=== PATIENT | female | born 1950 | race Caucasian/White ===

== ENCOUNTER → 2016-12-01 | Outpatient (CLI) | payer OTHER, BC | LOC: FIMAGING 08:48 | PROVIDERS: ATTEND Family Medicine | DX: N60.02 Solitary cyst of left breast (principal) | CPT/HCPCS: 76641; G0206 ==

== ENCOUNTER 2017-02-21 19:03 | Emergency (ER) | payer OTHER, BC ==
[2017-02-21 19:18] VITALS: RESP 16; TEMP 98.1
--- NOTE | 2017-02-21 19:31 | CPEKG ---
Heart Rate: 75 RR Interval: 800 P-R Interval: 156 QRSD Interval: 78 QT Interval: 404 QTC Interval: 452 P Hamilton: 42 QRS Hamilton: 3 T Wave Hamilton: 4 EKG Severity - ABNORMAL ECG - EKG Impression: SINUS RHYTHM EKG Impression: BORDERLINE R WAVE PROGRESSION, ANTERIOR LEADS EKG Impression: NONSPECIFIC T ABNORMALITIES, ANTERIOR LEADS Electronically Signed By: Ian Floyd 21-Feb-2017 23:47:19
--- NOTE | 2017-02-21 19:38 | EDPHY ---
H & P Time Seen by Provider: 02/21/17 19:37 HPI/ROS: Chief complaint. Chest pain HPI. 66-year-old female presents emergency department with right-sided chest pain that began today. She was also lightheaded this morning which she describes as spinning and took meclizine with relief. She has had previous vertigo and this was typical. The pain is in her right breast and she describes as a fullness. No radiation. Not worse with exertion or breathing. She had a viral infection 1 week ago with some cough. No unusual leg pain or swelling however she has been on a driving trip for the past 6 weeks most recently driving from [place]. ROS Constitutional. no fever/chills, no weakness Eyes. no problems with vision ENT. no sore throat, no nasal drainage Cardiovascular. Right-sided chest pain Respiratory. no shortness of breath, no cough Abdominal. no abdominal pain, no nausea/vomiting, no diarrhea . no problems urinating MS. no calf pain/swelling, no neck/back pain, no joint pain Skin. no rash Lymph. no swollen glands Neuro. Vertigo Past Medical/Surgical History: Past medical history of coronary artery bypass graft. Coronary artery disease with stents. Dyslipidemia, breast cancer, asthma, hypertension, GERD Social History: , nonsmoker, no alcohol Smoking Status: Never smoked Physical Exam: General Appearance: Alert well-developed female mild distress vital Eyes: Pupils equal and round no pallor or injection. ENT, Mouth: Mucous membranes are moist. Respiratory: There are no retractions, lungs are clear to auscultation. Cardiovascular: Regular rate and rhythm. Gastrointestinal: Abdomen is soft and nontender, no masses, bowel sounds normal. Neurological: Awake and alert, sensory and motor exams grossly normal. Skin: Warm and dry, no rashes. Musculoskeletal: Neck is supple nontender. Maybe slight tenderness to the right breast with palpation but no mass noted Extremities symmetrical, full range of motion. Psychiatric: Patient is oriented X 3, there is no agitation. Constitutional: Initial Vital Signs Temperature (C) 36.7 C 02/21/17 19:13 Heart Rate 92 02/21/17 19:13 Respiratory Rate 16 02/21/17 19:13 Blood Pressure 169/93 H 02/21/17 19:13 O2 Sat (%) 96 02/21/17 19:13 O2 Delivery Mode Room Air Allergies/Adverse Reactions: lisinopril [Lisinopril] Allergy (Severe, Verified 02/21/17 19:19) Congestion torsemide Allergy (Verified 02/21/17 19:19) zolpidem tartrate [From Ambien] Allergy (Verified 02/21/17 19:19) Other-Enter Comments Home Medications: Medication Instructions Recorded Calcium Carb W/Vit D [Calcium Carb 500 mg PO HS 05/19/16 W/Vit D 500/200 (*)] Herbals/Supplements -Info Only 1 ea PO DAILY 05/19/16 Multivitamins [Multivitamin (*)] 1 tab PO HS 05/19/16 [place]-3 Fatty Acids [Fish Oil 1000 1,000 mg PO HS 05/19/16 mg (*)] Pantoprazole Sodium [Protonix 40mg 40 mg PO HS 05/19/16 (*)] Rosuvastatin Calcium [Crestor 20mg 10 mg PO HS 05/19/16 (*)] Acetaminophen [Tylenol ES 500 mg 500 mg PO Q6 PRN 05/26/16 (*)] Ascorbic Acid [Vitamin C 500 mg 500 mg PO HS 05/26/16 (*)] Aspirin [Aspirin 325 mg (*)] 325 mg PO HS 05/26/16 Metoprolol Succinate Xr [Toprol Xl 25 mg PO HS 05/26/16 25 mg (*)] Prasugrel HCl [Effient 10mg (*)] 10 mg PO HS 05/26/16 Ranolazine [Ranexa] 500 mg PO BID 02/21/17 Vitamin E 100 unit PO HS 02/21/17 Medical Decision Making - Diagnostics EKG Interpretation: EKG interpreted by me shows normal sinus rhythm with normal interval. There is left axis deviation. QRS is normal. Inverted T-waves anteriorly. The rate is 75. This is not changed from previous EKG April 2016 Imaging Results: Imaging Impressions Chest X-Ray 02/21/17 19:39 Impression: 1. Hyperexpansion may reflect COPD or airways disease. 2. Stigmata of previous open heart surgery. Chest/Thorax CTA 02/21/17 20:33 Impression: 1. No evidence of pulmonary embolic disease. 2. Postoperative changes of right breast lumpectomy are noted. There is soft tissue prominence posteriorly in the right breast adjacent to the chest wall, which is probably postoperative change versus involvement of the chest wall with breast cancer. MRI could be considered for making this differential, as clinically indicated. 3. See above report for additional findings. Results called and discussed with Ian Floyd M.D., on February 21, 2017 at 2128. Two view chest x-ray interpreted by me is normal CT angiogram of the patient's chest shows no evidence of pulmonary embolus. There is concern for postoperative inflammation of tissue posterior to the right breast but adjacent to the chest wall. Procedures: IV normal saline, monitor ED Course/Re-evaluation: Re-evaluation 8:30 p.m. patient is stable. She and I talked about lab imaging studies. We talked about elevated D-dimer and recommendation for CT chest. She expresses understanding Repeat troponin is normal I consulted discussed case with Dr. Alejo in who was the surgeon who performed patient's breast surgery for breast cancer. She sees the patient in the emergency department Re-evaluation at 10:45 p.m. patient and I discussed imaging lab results, treatment plan including criteria for return importance of follow-up and further evaluation. She expresses understanding and agreement Differential Diagnosis: I considered acute coronary syndrome, pulmonary embolus, pneumonia. We have also considered reactivation of breast cancer - Data Points Laboratory Results: Laboratory Results 02/21/17 19:30 02/21/17 19:30 02/21/17 02/21/17 02/21/17 21:15 19:30 19:30 WBC RBC Hgb Hct MCV MCH MCHC RDW Plt Count MPV Neut % (Auto) Lymph % (Auto) [place] % (Auto) Eos % (Auto) Baso % (Auto) Nucleat RBC Rel Count Absolute Neuts (auto) Absolute Lymphs (auto) Absolute Monos (auto) Absolute Eos (auto) Absolute Basos (auto) Absolute Nucleated RBC Immature Gran % Immature Gran # D-Dimer 0.56 ug/mLFEU H ug/mLFEU (0.00-0.50) Sodium 145 mEq/L H mEq/L (134-144) Potassium 4.0 mEq/L mEq/L (3.5-5.2) Chloride 107 mEq/L mEq/L (97-110) Carbon Dioxide 24 mEq/l mEq/l (22-31) Anion Gap 14 mEq/L mEq/L (8-16) BUN 16 mg/dL mg/dL (7-23) Creatinine 0.8 mg/dL mg/dL (0.6-1.0) Estimated GFR > 60 Glucose 89 mg/dL mg/dL (70-100) Calcium 9.4 mg/dL mg/dL (8.5-10.4) Troponin I < 0.012 ng/mL ng/mL < 0.012 ng/mL ng/mL (0-0.034) (0-0.034) 02/21/17 19:30 WBC 7.21 10^3/uL 10^3/uL (3.80-9.50) RBC 4.27 10^6/uL 10^6/uL (4.18-5.33) Hgb 13.9 g/dL g/dL (12.6-16.3) Hct 41.1 % % (38.0-47.0) MCV 96.3 fL fL (81.5-99.8) MCH 32.6 pg pg (27.9-34.1) MCHC 33.8 g/dL g/dL (32.4-36.7) RDW 12.7 % % (11.5-15.2) Plt Count 275 10^3/uL 10^3/uL (150-400) MPV 9.3 fL fL (8.7-11.7) Neut % (Auto) 62.2 % % (39.3-74.2) Lymph % (Auto) 26.2 % % (15.0-45.0) [place] % (Auto) 9.0 % % (4.5-13.0) Eos % (Auto) 1.7 % % (0.6-7.6) Baso % (Auto) 0.6 % % (0.3-1.7) Nucleat RBC Rel Count 0.0 % % (0.0-0.2) Absolute Neuts (auto) 4.49 10^3/uL 10^3/uL (1.70-6.50) Absolute Lymphs (auto) 1.89 10^3/uL 10^3/uL (1.00-3.00) Absolute Monos (auto) 0.65 10^3/uL 10^3/uL (0.30-0.80) Absolute Eos (auto) 0.12 10^3/uL 10^3/uL (0.03-0.40) Absolute Basos (auto) 0.04 10^3/uL 10^3/uL (0.02-0.10) Absolute Nucleated RBC 0.00 10^3/uL 10^3/uL (0-0.01) Immature Gran % 0.3 % % (0.0-1.1) Immature Gran # 0.02 10^3/uL 10^3/uL (0.00-0.10) D-Dimer Sodium Potassium Chloride Carbon Dioxide Anion Gap BUN Creatinine Estimated GFR Glucose Calcium Troponin I Departure - Departure Disposition: Home, Routine, Self-Care Clinical Impression: Chest pain Qualifiers: Chest pain type: other chest pain Qualified Code(s): R07.89 - Other chest pain ; R07.8 - Other chest pain Condition: Good Instructions: Chest Pain (ED) Additional Instructions: Follow-up with Dr. Finn for further evaluation and scheduling MRI. Return for worsening chest discomfort or breathing Referrals: Dillon Arriola DO [Primary Care Provider] - As per Instructions Emilia Finn MD [Medical Doctor] - As per Instructions
[2017-02-21 19:46] LABS: % IMMATURE GRANULYOCYTES 0.3 % (0.0-1.1); ABSOLUTE IMMATURE GRANULOCYTES 0.02 10^3/uL (0.00-0.10); ADD DIFF? NO; ADD MORPH? NO; ADD SCAN? NO; ATYPICAL LYMPHOCYTE FLAG 20 (0-99); FRAGMENT RBC FLAG 0 (0-99); HEMATOCRIT 41.1 % (38.0-47.0); HEMOGLOBIN 13.9 g/dL (12.6-16.3); LEFT SHIFT FLG 0 (0-99); LIPEMIA HEMOLYSIS FLAG 90 (0-99); MEAN CELL HEMOGLOBIN 32.6 pg (27.9-34.1); MEAN CELL HEMOGLOBIN CONCENTR. 33.8 g/dL (32.4-36.7); MEAN CELL VOLUME 96.3 fL (81.5-99.8); MEAN PLATELET VOLUME 9.3 fL (8.7-11.7); PLATELET CLUMPS FLAG 0 (0-99); PLATELET COUNT 275 10^3/uL (150-400); RED BLOOD CELL COUNT 4.27 10^6/uL (4.18-5.33); RED CELL DISTRIBUTION WIDTH 12.7 % (11.5-15.2)
[2017-02-21 19:48] LABS: ANION GAP 14 mEq/L (8-16); CALCIUM 9.4 mg/dL (8.5-10.4); CARBON DIOXIDE 24 mEq/l (22-31); CHLORIDE 107 mEq/L (97-110); CREATININE 0.8 mg/dL (0.6-1.0); GLOMERULAR FILTRATION RATE > 60; GLUCOSE 89 mg/dL (70-100); SODIUM 145 mEq/L (134-144)
[2017-02-21 20:00] LABS: TROPONIN I < 0.012 ng/mL (0-0.034)
[2017-02-21] MEDS ORDERED: IOPAMIDOL (ISOVUE 370) 100 ML BTL IV ONE (20:35)
[2017-02-21 22:30] VITALS: BP 136/85; PULSE 70; O2SAT 95
== END 2017-02-21 23:14 | disposition home or self-care (01) ==
DX: R07.89 Other chest pain (principal); I25.810 Atherosclerosis of coronary artery bypass graft(s) without angina pectoris; J45.909 Unspecified asthma, uncomplicated; I10 Essential (primary) hypertension; Z79.82 Long term (current) use of aspirin; Z85.3 Personal history of malignant neoplasm of breast
CPT/HCPCS: 71020; 71275; 93005; 99285; Q9967

== ENCOUNTER → 2017-02-23 | Outpatient (CLI) | payer OTHER, BC ==
[~2017-02-23] MED LIST: GADOBUTROL 10 ML VIAL IVP ONE
== END ==
LOC: FIMAGING 11:39
PROVIDERS: ATTEND Surgery
CPT/HCPCS: 0159T; A9585; C8908

== ENCOUNTER 2017-03-16 09:43 | Outpatient (CLI) | payer OTHER, BC ==
[2017-03-16] MEDS ORDERED: NALOXONE HCL 0.4 MG/ML INJ ONE (10:35)
[2017-03-16] MEDS ORDERED: MIDAZOLAM 2 MG/2 ML VIAL ONE (10:35)
[2017-03-16] MEDS ORDERED: FLUMAZENIL 0.5 MG/5 ML MDV IVP ONE (10:35)
[2017-03-16] MEDS ORDERED: fentaNYL 100 MCG/2 ML INJ ONE (10:36)
[2017-03-16] MEDS ORDERED: GADOBUTROL 10 ML VIAL IVP ONE (10:45)
[2017-03-16] MEDS ORDERED: NA BICARBONATE 50 MEQ/50 ML VIAL ONE (10:46)
[2017-03-16] MEDS ORDERED: BUPIVACAINE 0.5% 30 ML SDV ONE (10:47)
[2017-03-16] MEDS ORDERED: LIDOCAINE 1% 5 ML SDV ONE (10:48)
== END 2017-03-16 13:05 | disposition home or self-care (01) ==
LOC: FIMAGING 09:43
PROVIDERS: ATTEND Surgery
DX: D05.11 Intraductal carcinoma in situ of right breast (principal); Z85.3 Personal history of malignant neoplasm of breast
CPT/HCPCS: 19085; 88360; 99152; 99153; A9585; G0206; J2250; J3010; J2310

== ENCOUNTER → 2017-03-28 | Outpatient (CLI) | payer OTHER, BC | LOC: BHFA 11:15 | PROVIDERS: ATTEND Internal Medicine Cardiovascular Disease | DX: I25.10 Atherosclerotic heart disease of native coronary artery without angina pectoris (principal); I10 Essential (primary) hypertension; E78.5 Hyperlipidemia, unspecified ==

== ENCOUNTER 2017-04-25 09:41 | Inpatient (IN) | payer OTHER, BC ==
--- NOTE | 2017-04-24 10:43 | GHP ---
[f rep st] PREOP HISTORY AND PHYSICAL DATE OF ADMISSION: 04/25/2017 CHIEF COMPLAINT: Right breast DCIS. HISTORY OF PRESENT ILLNESS: The patient is a 66-year-old woman, who was previously diagnosed with ri ght breast invasive ductal carcinoma. She was taken to the operating room in September 2015 for a right breast lumpectomy and right sentinel lymph node biopsy. Her final pathology showed a 2.3 cm invasive ductal carcinoma, ER negative, KS negative, HER-2/mayito negative. She had 0 out of 5 lymph nodes posi tive. All of the margins were clear. She underwent chemotherapy and radiation. She was then seen i n the emergency room in January 2017 complaining of chest pain and had a cardiac workup, which was negat vicki. A chest CT was performed, which showed a concern for a possible chest wall involvement of malig nant disease deep to her previous lumpectomy cavity. She had a breast MRI, which showed postop simmons es and rim-like enhancement, but also revealed a 0.6 cm irregular focus of abnormal enhancement super ior to her previous lumpectomy. She then had an MRI-guided needle biopsy of the right breast at the 6 o'clock position. The final pathology from that showed a DCIS ER/KS negative, without evidence of invasive disease. At this time, the patient would like to pursue bilateral mastectomy with reconstru ction by Dr. Leonard. PAST MEDICAL HISTORY: Hypertension, breast cancer, coronary artery disease, hyperlipidemia. PAST SURGICAL HISTORY: , colposcopy with biopsy, coronary artery stent, coronary bypass, jaime mpectomy, sentinel lymph node biopsy. MEDICATIONS: Alprazolam, Aquasol, aspirin, calcium with vitamin D3, coenzyme Q, Crestor, Effient, fi sh oil, Flonase, Flovent, metoprolol, Nitrostat, pantoprazole, Ranexa, Xopenex. ALLERGIES: Lisinopril, torsemide, zolpidem. FAMILY HISTORY: Sister with asthma. Aunt with breast cancer. Father with coronary artery disease, hyperlipidemia and hypertension. Mother with stomach cancer. SOCIAL HISTORY: She is with 2 children. She has grandchildren. She denies tobacco or recre ational drug use. Reports occasional alcohol use. REVIEW OF SYSTEMS: A 10-point review of systems is negative aside from HPI. PHYSICAL EXAMINATION: GENERAL: Well-developed, well-nourished woman in no acute distress. HEENT: Normocephalic, atraumatic. No hearing deficits. Pupils equal and round. No scleral icterus. Mucou s membranes moist. NECK: Trachea midline. RESPIRATORY: Clear to auscultation bilaterally. No inc reased work of breathing. CARDIOVASCULAR: Regular rate and rhythm. No peripheral edema. MUSCULOSK ELETAL: Normal gait. Normal nails. Full range of motion of bilateral upper extremities. SKIN: Wa rm and dry. PSYCHIATRIC: Mood and affect normal. BREASTS: Exam performed in upright and supine po sition. Right breast smaller than left with evidence of previous biopsy. No discrete mass palpated. LYMPH: No cervical, supraclavicular or axillary lymphadenopathy. IMPRESSION AND PLAN: The patient is a 66-year-old woman with a right breast ductal carcinoma in situ and a previous right breast invasive ductal carcinoma. She would like to proceed with bilateral mas tectomy with reconstruction by Dr. Leonard. We discussed risks of surgery including, but not limite d to, heart attack, stroke, blood clots or . We discussed risk of infection, bleeding, need for revision and need for additional procedures. She understands the risks and would like to proceed. Her case was also discussed with her oncologist, Dr. Abner Montgomery. This will be overnight observati on. She will receive antibiotics on-call to the operating room. The patient was additionally seen by Dr. Emilia Finn, who agrees with the above impression and plan. /[id number]/MODL
[2017-04-25] MEDS ORDERED: ceFAZolin 2 GM/DEXTROSE 100 ML IV ONE (09:57)
[2017-04-25] MEDS ORDERED: LIDOCAINE 1% 2 ML INJ ID PRN (10:48)
[2017-04-25] MEDS ORDERED: LR 1,000 ML IV ONE (10:48)
[2017-04-25] MEDS ORDERED: METHYLENE BLUE 0.5% 50 MG/10 ML AMP ONE (11:38)
[2017-04-25] MEDS ORDERED: GENTAMICIN SULFATE 80 MG/2 ML VIAL ONE (11:39)
[2017-04-25] MEDS ORDERED: THROMBIN (BOVINE) 20,000 UNIT SPRAY TP ONE (11:39)
[2017-04-25] MEDS ORDERED: ceFAZolin 1 GM/5 ML SYR ONE (11:41)
[2017-04-25] MEDS ORDERED: BACITRACIN 50,000 UNITS/10 ML SYR IRR ONE (11:42)
[2017-04-25] MEDS ORDERED: BACITRACIN ZINC 14.2 GM OINTTUBE TP ONE (11:42)
--- NOTE | 2017-04-25 11:45 | PDHPUP ---
History & Physical Update H&P update statement: This history and physical update is based on an assessment of the patient which was completed after admission or registration (within 24 hours), but prior to the surgery/procedure. H&P update: no change in patient's condition since H&P completed
--- NOTE | 2017-04-25 12:20 | PDANEPAE ---
ANE History of Present Illness 66 yo female with breast cancer for bilateral mastectomy and reconstruction. ANE Past Medical History - Cardiovascular History Hx Hypertension: Yes Hx Arrhythmias: No Hx Chest Pain: No Hx Coronary Artery / Peripheral Vascular Disease: Yes Hx CHF / Valvular Disease: No Hx Palpitations: No Cardiovascular History Comment: CABG 2010. STENTS X4 11 mo ago - Pulmonary History Hx COPD: No Hx Asthma/Reactive Airway Disease: No Hx Recent Upper Respiratory Infection: No Hx Oxygen in Use at Home: No Hx Sleep Apnea: No Sleep Apnea Screening Result - Last Documented: Positive Pulmonary History Comment: INHALERS FOR RESP INFS PERIODICALLY - Neurologic History Hx Cerebrovascular Accident: No Hx Seizures: No Hx Dementia: No - Endocrine History Hx Diabetes: No Obesity: mild - Renal History Hx Renal Disorders: No - Liver History Hx Hepatic Disorders: No - Neurological & Psychiatric Hx Hx Neurological and Psychiatric Disorders: No - Cancer History Hx Cancer: Yes Cancer History Comment: BREAST. SKIN - SQUAMOUS & BASAL - Congenital Disorder History Hx Congenital Disorders: No - GI History Hx Gastrointestinal Disorders: Yes Gastrointestinal History Comment: GERD. HIATAL HERNIA - Other Health History Other Health History: NEG - Chronic Pain History Chronic Pain: No - Surgical History Prior Surgeries: R BREAST LUMPECTOMY. CABG 2010. STENTS X3 2010. C SECTIONS ANE Review of Systems Review of Systems: - Exercise capacity METS (RN): 4 METS - Systems EENMT: Reports: other (clear rhinorrhea over weekend now resolved - believes it was allergy related.) ANE Patient History - Allergies Allergies/Adverse Reactions: lisinopril [Lisinopril] Allergy (Severe, Verified 03/06/17 15:25) Congestion torsemide Allergy (Verified 03/06/17 15:25) zolpidem tartrate [From Ambien] Allergy (Verified 03/06/17 15:25) Other-Enter Comments - Home Medications Home medications: home medication list seen and reviewed Home Medications: Calcium Carb W/Vit D [Calcium Carb W/Vit D 500/200 (*)] 500 mg PO HS 05/19/16 [ Last Taken 02/20/17] Herbals/Supplements -Info Only 1 ea PO DAILY 05/19/16 [Last Taken 05/19/16] Multivitamins [Multivitamin (*)] 1 tab PO HS 05/19/16 [Last Taken 02/20/17] [place]-3 Fatty Acids [Fish Oil 1000 mg (*)] 1,000 mg PO HS 05/19/16 [Last Taken 02/20/17] Pantoprazole Sodium [Protonix 40mg (*)] 40 mg PO HS 05/19/16 [Last Taken 21:30] Ascorbic Acid [Vitamin C 500 mg (*)] 500 mg PO HS 05/26/16 [Last Taken 02/20/17] Aspirin [Aspirin 325 mg (*)] 325 mg PO HS 05/26/16 [Last Taken 04/18/17] Metoprolol Succinate Xr [Toprol Xl 25 mg (*)] 25 mg PO HS 05/26/16 [Last Taken 04/24/17 21:30] Prasugrel HCl [Effient 10mg (*)] 10 mg PO HS 05/26/16 [Last Taken 04/18/17] Ranolazine [Ranexa] 500 mg PO BID 02/21/17 [Last Taken 04/25/17 07:00] ALPRAZolam [Xanax 0.25 MG (*)] 0.25 mg PO HS PRN 04/04/17 [Last Taken 04/24/17 21:30] Gabapentin [Neurontin 100 MG (*)] 200 mg PO BID 04/04/17 [Last Taken 04/25/17 07 :00] Rosuvastatin Calcium [Crestor 10mg (RX)] 10 mg PO HS 04/04/17 [Last Taken 21:30] Famotidine [Pepcid 20 MG (*)] 20 mg PO DAILY PRN 04/07/17 [Last Taken Unknown] Fluticasone Hfa 110 Mcg [Flovent 110 MCG Hfa MDI (*)] 2 puffs IH BID 04/07/17 [ Last Taken Unknown] Levalbuterol Inhaler [Xopenex Hfa Inhaler (*)] 2 puffs IH Q4HRS PRN 04/07/17 [ Last Taken Unknown] - NPO status NPO Since - Liquids (Date): 04/24/17 NPO Since - Liquids (Time): 22:30 NPO Since - Solids (Date): 04/24/17 NPO Since - Solids (Time): 20:30 - Anes Hx Anes Hx: no prior problems - Smoking Hx Smoking Status: Never smoked - Family Anes Hx Family Hx Anesthesia Complications: NEG ANE Labs/Vital Signs - Vital Signs Blood Pressure: 136/71 Heart Rate: 73 Respiratory Rate: 16 O2 Sat (%): 97 Height: 160.02 cm Weight: 76.657 kg ANE Physical Exam - Airway Neck exam: FROM Mallampati Score: Class 2 Mouth exam: normal dental/mouth exam - Pulmonary Pulmonary: clear to auscultation - Cardiovascular Cardiovascular: regular rate and rhythym - ASA Status ASA Status: III ANE Anesthesia Plan Anesthesia Plan: general endotracheal anesthesia
[2017-04-25] MEDS ORDERED: DEXAMETHASONE 4 MG/ML VIAL ONE (12:23)
[2017-04-25] MEDS ORDERED: ROCURONIUM 100 MG/10 ML VIAL ONE (12:23)
[2017-04-25] MEDS ORDERED: PROPOFOL/EMULSION 500 MG/50 ML BOTTLE IV ONE ×2 (12:23→13:57)
[2017-04-25] MEDS ORDERED: LIDOCAINE 2% 5 ML SDV ONE (12:23)
[2017-04-25] MEDS ORDERED: fentaNYL 100 MCG/2 ML INJ ONE ×3 (12:23→16:27)
[2017-04-25] MEDS ORDERED: VASOPRESSIN 20 UNIT/ML VIAL ONE (12:47)
[2017-04-25] MEDS ORDERED: HYDROmorphONE/DILAUDID 1 MG/ML INJ IVP PRN (13:34)
[2017-04-25] MEDS ORDERED: ONDANSETRON 4 MG/2 ML VIAL IVP PRN (13:34)
[2017-04-25] MEDS ORDERED: diphenhydrAMINE 25 MG CAP PO PRN (13:34)
[2017-04-25] MEDS ORDERED: ONDANSETRON DISINTEGRATING 4 MG TAB PO PRN (13:34)
--- NOTE | 2017-04-25 13:37 | POSTOPPROG ---
Post Op Note Date of Operation: 04/25/17 Surgeon: Emilia Finn Algorithm Design Engineer: shawn radford PA-C Anesthesiologist: adrienne Anesthesia: GET(General Endotracheal) Pre-op Diagnosis: R breast DCIS Post-op Diagnosis: same Indication: 66yo F with h/o R breast ca with recurrent DCIS Procedure: B mastectomy with L SLN bx Findings: L SLN bx negative Inf/Abcess present in the surg proc area at time of surgery?: No Depth: Deep Incisional (Fascial) EBL: Minimal Specimen(s): L breast L SLN R breast
[2017-04-25] MEDS ORDERED: NS 1,000 ML IV SCH (13:45)
[2017-04-25] MEDS ORDERED: LEVALBUTEROL INHALER 200 PUFFS/15 GM MDI IH PRN (14:07)
[2017-04-25] MEDS ORDERED: ALPRAZolam 0.25 MG TAB PO PRN (14:07)
[2017-04-25] MEDS ORDERED: FAMOTIDINE 20 MG TAB PO PRN (14:07)
[2017-04-25] MEDS ORDERED: ONDANSETRON 4 MG/2 ML VIAL ONE (15:03)
[2017-04-25] MEDS ORDERED: SUGAMMADEX SODIUM 200 MG/2 ML VIAL IVP ONE (15:28)
--- NOTE | 2017-04-25 15:43 | POSTOPPROG ---
Post Op Note Date of Operation: 04/25/17 Surgeon: Mayo Leonard School Patrol: Jose HARTMAN Anesthesia: GET(General Endotracheal) Pre-op Diagnosis: Breast cancer Post-op Diagnosis: Breast cancer Indication: Breast cancer Procedure: Bilateral tissue expanders and Alloderm Findings: Bilateral mastectomies Inf/Abcess present in the surg proc area at time of surgery?: No EBL: Minimal (20) Total fluids administered: 1500 Complications: none Drains: Zaid Hodges
[2017-04-25] MEDS ORDERED: OXYCODONE/APAP 5/325 TAB PO PRN (15:47)
[2017-04-25] MEDS ORDERED: fentaNYL 100 MCG/2 ML INJ IVP PRN (15:47)
[2017-04-25] MEDS ORDERED: PROMETHAZINE HCL 25 MG/ML INJ IVP PRN (15:47)
[2017-04-25] MEDS ORDERED: NALOXONE HCL 0.4 MG/ML INJ IVP PRN (15:47)
[2017-04-25] MEDS ORDERED: ACETAMINOPHEN 500 MG TAB PO PRN (15:47)
[2017-04-25] MEDS ORDERED: LR 500 ML IV PRN (15:47)
[2017-04-25] MEDS ORDERED: HYDROmorphONE/DILAUDID 1 MG/ML INJ ONE (16:27)
[2017-04-25] MEDS ORDERED: OXYCODONE/APAP 5/325 TAB ONE (16:43)
[2017-04-25] MEDS: CYCLOBENZAPRINE 10 MG TAB PO SCH ×3 (17:53→21:24)
[2017-04-25] MEDS: ROSUVASTATIN CALCIUM 10 MG TAB PO SCH (21:23)
[2017-04-25] MEDS: ASPIRIN 325 MG TAB PO SCH (21:24)
[2017-04-25] MEDS: GABAPENTIN 100 MG CAP PO SCH (21:24)
[2017-04-25] MEDS: PANTOPRAZOLE SODIUM 40 MG TAB PO SCH (21:24)
[2017-04-25] MEDS: METOPROLOL SUCCINATE XR 25 MG TAB PO SCH (21:24)
[2017-04-25] MEDS: RANOLAZINE 500 MG TAB.ER PO SCH (21:41)
[2017-04-25] MEDS: PRASUGREL HCL 10 MG TAB PO SCH (21:41)
[2017-04-25] MEDS ORDERED: HYDROmorphONE/DILAUDID 2 MG/ML INJ IVP PRN (22:00)
[2017-04-25] MEDS: FLUTICASONE HFA 110 MCG MDI IH SCH (23:04)
--- NOTE | 2017-04-25 23:06 | GOP ---
[f rep st] OPERATIVE REPORT DATE OF OPERATION: 04/25/2017 SURGEON: Mayo Leonard MD CHARTER COACH DRIVER: Jose Heart, Gas Engine Performance Engineer. ANESTHESIA: General endotracheal. PREOPERATIVE DIAGNOSIS: Right breast ductal carcinoma in situ. POSTOPERATIVE DIAGNOSIS: Right breast ductal carcinoma in situ. PROCEDURE PERFORMED: Bilateral tissue communications intern breast reconstruction with AlloDerm. FINDINGS: Bilateral mastectomies and sentinel lymph node biopsy. ESTIMATED BLOOD LOSS: 20. INDICATIONS: This is a 66-year-old woman who was previously diagnosed with right breast invasive ductal carcinoma. She had previously undergone a right breast lumpectomy and sentinel lymph node biopsy. All her margins were clear. She then underwent chemotherapy and radiation. However, she was seen in the emergency room in 2017, had a cardiac workup for concern of a chest wall involvement in malignant disease deep to her previous lumpectomy site. Workup did show DCIS and recurrence of her right breast cancer. She therefore elected to undergo bilateral skin-sparing mastectomies with immediate reconstruction with tissue expanders and AlloDerm. DESCRIPTION OF PROCEDURE: The patient was met in the preoperative area, where the risks and benefits were discussed with her at length, which included, but were not limited to, infection, bleeding, hematoma, seroma, partial or total mastectomy skin flap loss, paresthesias, contour irregularities, injury to the tissue communications intern, reaction to the tissue communications intern or AlloDerm, need for further revision surgeries, and poor cosmesis. She was agreeable to this, and therefore signed the operative consent. She was then taken to the operating room and prior to going asleep, she revealed 2 g of Ancef perioperatively before any incision was made. Bilateral SCDs were placed were DVT prophylaxis and urinary catheter was placed for urinary monitoring throughout the case. A time-out was performed, where all in the room agreed to the site and the procedure to be performed. Bilateral skin-sparing mastectomies will be dictated by my colleague, Dr. Emilia Finn. We began our part of procedure on the right side. We examined the mastectomy skin flaps and they were deemed to be viable. The area was washed out with copious amounts of sterile saline and hemostasis was achieved with electrocautery. We began raising the subpectoral pocket by identifying the lateral border of the pectoralis major muscle, and this was lifted off the chest wall, taking care to coagulate any intercostal perforators with electrocautery. Once we had a smooth contour of the subpectoral pocket, then measurement was made and the breast was deemed to have a 12 cm base width; therefore, a 133 MX-12T communications intern was chosen. Methylene blue was then traced out along the footplate for placement of the AlloDerm. Then a 12 x 20 cm thick piece of AlloDerm was used and cut to a contour to complete the subpectoral pocket. This was sewn into the new IMF as well as the lateral chest wall with a running 2-0 Vicryl suture. The area was then washed out with 2 syringes of sterile saline solution and 3 syringes of triple antibiotic solution. My assistant cook and I then changed our gloves. All the air was taken out of the aforementioned communications intern, and this was then placed in the subpectoral pocket. The tabs were secured to the chest wall with 2-0 PDS sutures to provide good orientation and no rotation within the subpectoral pocket. The pocket was then completely closed by suturing the superior border of the AlloDerm to the inferior border of pectoralis major muscle with a running 2-0 Vicryl suture. Two 15-English drains were then placed, one within the axilla and one at the IMF and were secured to the skin with 2-0 silk sutures. We then temporarily closed the mastectomy skin flaps and 100 mL were infiltrated within the communications intern on the right side. Once we deemed that there was no undue tension on the skin flaps, this was then closed in a complex fashion with a 3-0 Monocryl subdermal suture, a 4-0 running Monocryl suture, and skin giles to approximate the epidermal edges. The same procedure was then done on the left side. The same communications intern size was chosen. This was a 133 MX-12T, and the AlloDerm was again a 12 x 20 cm piece cut to contour in order to complete the subpectoral pocket. Once the subpectoral pocket was made, the tissue communications intern was inserted and closed. We instilled on the left side 150 mL of methylene blue and infused sterile saline just as we did on the right side, which was 100 mL. Two 15- English round J-P drains were again placed, one within the IMF and one within the axilla, and the skin was then closed with 3-0 Monocryl, 4-0 running Monocryl subcuticular and skin giles. The patient was then dressed with bacitracin, Xeroform, fluffs, and a surgical support bra. The count was correct at the end of the case. There were no complications. She was taken to PACU in good condition. Again, the expanders: The right communications intern was a 133 MX-12T. This was filled 100 out of 400 cc. Serial number is [id number]. On the left side, a 133 MX-12T. This was filled to 150 cc out of 400 cc. Serial number was [id number]. INTRAVENOUS FLUIDS: 1200. URINE OUTPUT: 100. /[id number]/MODL MTDD
[2017-04-26] MEDS: HYDROCODONE/APAP 5/325 TAB PO PRN ×5 (03:26→23:24)
[2017-04-26] MEDS: FLUTICASONE HFA 110 MCG MDI IH SCH ×2 (08:36→19:50)
[2017-04-26] MEDS: CYCLOBENZAPRINE 10 MG TAB PO SCH ×3 (09:40→21:35)
[2017-04-26] MEDS: GABAPENTIN 100 MG CAP PO SCH ×2 (09:40→20:43)
[2017-04-26] MEDS: RANOLAZINE 500 MG TAB.ER PO SCH ×2 (09:40→20:59)
--- NOTE | 2017-04-26 09:58 | GOP ---
[f rep st] OPERATIVE REPORT DATE OF OPERATION: 04/25/2017 SURGEON: Emilia Finn MD CONSERVATION ENFORCEMENT OFFICER: ASHTYN Lester ANESTHESIA: General. ANESTHESIOLOGIST: Isabella Fernandez MD PREOPERATIVE DIAGNOSIS: Right breast ductal carcinoma in situ. POSTOPERATIVE DIAGNOSIS: Right breast ductal carcinoma in situ. PROCEDURE PERFORMED: Bilateral mastectomy with left sentinel lymph node biopsy. FINDINGS: Negative sentinel lymph node SPECIMENS: Left breast short superior, long lateral. Left sentinel lymph node. Right breast short superior, long lateral. ESTIMATED BLOOD LOSS: 20 cc. INDICATIONS: The patient is a 66-year-old woman who previously had invasive ductal carcinoma of the right breast. She underwent lumpectomy followed by radiation and had 0/5 lymph nodes positive. She returned to the emergency room this summer concerned she was having a heart attack, and on that, her CT scan showed an area of concern on her right breast. We continued the workup and ultimately found ductal carcinoma in situ. DESCRIPTION OF PROCEDURE: The patient was brought into the operating room, placed supine on the table, and general anesthesia was administered. Her bilateral chest and axilla were prepped and draped in the usual sterile fashion. I started the procedure on the left side. I made an incision over the markings on her left breast. I created superior and inferior skin flaps. My dissection occurred to the clavicle, sternum, inframammary fold, and mid axillary line. The breast was removed, including the pectoralis fascia. It was marked short superior and long lateral. I used the gamma probe to identify the sentinel lymph node. It was over 11,000, and the background was very quiet. This was submitted to Pathology for frozen which returned negative. Hemostasis was achieved in the cavity, and a damp lap was placed. Next, I began my dissection in a similar fashion on the right side. The right side was different in that there was some scar tissue from her previous lumpectomy site. I performed careful dissection in this area in order to remove the previous lumpectomy cavity without making the skin flap to thin. Again, the dissection occurred to the clavicle, sternum, inframammary mammary fold, and mid axillary line. The breast was removed including the pectoralis fascia. It was marked short superior and long lateral. Hemostasis was achieved , and a damp lap was placed. Dr. Leonard was then able to perform his portion of the surgery. /[id number]/MODL MTDD
--- NOTE | 2017-04-26 10:16 | POSTANESTH ---
Post Anesthetic Evaluation Cardiovascular Status: Normal, Stable Respiratory Status: Normal, Stable Level of Consciousness/Mental Status: Can Participate in Eval, Mildly Sleepy, Arousable Pain Control: Adequate, Prn Tx Ordered Nausea/Vomiting Control: Adequate, Prn Tx Ordered Complications Possibly Related to Anesthesia: None Noted (This is a delayed note. Events reported are from 04/25/17 at approximately 16:00.)
[2017-04-26] MEDS ORDERED: LACTULOSE 20 GM/30 ML UDCUP PO PRN (10:48)
[2017-04-26] MEDS ORDERED: POLYETHYLENE GLYCOL 3350 17 GM PKT PO PRN (10:48)
[2017-04-26] MEDS ORDERED: MAGNESIUM HYDROXIDE 30 ML UDCUP PO PRN (10:48)
[2017-04-26] MEDS ORDERED: BISACODYL 10 MG SUPP PR PRN (10:48)
[2017-04-26] MEDS: SENNOSIDES/DOCUSATE SODIUM TAB PO SCH ×2 (11:12→20:42)
--- NOTE | 2017-04-26 14:55 | SOAPPROG ---
SOAP Progress Note Assessment/Plan: Assessment/Plan: 66yo F POD#1 s/p B mastectomy with L SLN bx and reconstruction by Dr. Leonard Pain controlled Regular diet Restarted effient and ASA NORA drains serosanguinous Dispo: DC tomorrow as long as pain controlled. Seen c Dr. Finn S: feeling well. worried about being discharged home too soon O: laying comfortably in bed, NAD, daughter at bedside No increased WOB CTAB RRR Dressings in place B NORA drains with serosanguinous output Objective: Vital Signs Temp Pulse Resp BP Pulse Ox 36.7 C 69 18 104/56 L 95 04/26/17 11:55 04/26/17 11:55 04/26/17 11:55 04/26/17 11:55 04/26/17 11:55 04/25/17 04/26/17 04/27/17 05:59 05:59 05:59 Intake Total 2045 500 Output Total 1375 100 Balance 670 400 ICD10 Worksheet Patient Problems: Problems Problem Status Onset Chest pain Acute
--- NOTE | 2017-04-26 16:23 | ASMTCMCOM ---
CM Note CM Note Notes: Pt s/p bilateral breast mastectomies with reconstruction. Hx previous R breast lumpectomy in September 2015 with chemo and radiation. Lives with her . Pt currently has NORA drains. May d/c tomorrow if pain is managed. Anticipate d/c home with no CM needs but will continue to follow for any change in needs. Date Signed: 04/26/2017 04:22 PM Electronically Signed By:INDIA Cole
[2017-04-26] MEDS: ROSUVASTATIN CALCIUM 10 MG TAB PO SCH (20:42)
[2017-04-26] MEDS: PRASUGREL HCL 10 MG TAB PO SCH (20:42)
[2017-04-26] MEDS: METOPROLOL SUCCINATE XR 25 MG TAB PO SCH (20:42)
[2017-04-26] MEDS: ASPIRIN 325 MG TAB PO SCH (20:43)
[2017-04-26] MEDS: PANTOPRAZOLE SODIUM 40 MG TAB PO SCH (20:43)
[2017-04-27] MEDS: HYDROCODONE/APAP 5/325 TAB PO PRN (05:58)
[2017-04-27 08:04] VITALS: BP 131/73; PULSE 76; RESP 15; TEMP 98.4; O2SAT 92
[2017-04-27] MEDS: FLUTICASONE HFA 110 MCG MDI IH SCH (09:34)
[2017-04-27] MEDS: GABAPENTIN 100 MG CAP PO SCH (09:35)
[2017-04-27] MEDS: RANOLAZINE 500 MG TAB.ER PO SCH (09:37)
[2017-04-27] MEDS: SENNOSIDES/DOCUSATE SODIUM TAB PO SCH (09:37)
[2017-04-27] MEDS: CYCLOBENZAPRINE 10 MG TAB PO SCH (09:37)
--- NOTE | 2017-04-27 09:55 | SOAPPROG ---
SOAP Progress Note Assessment/Plan: Assessment: POD # 2 s/p bilat mastectomy and L SLN for R DCIS and history of R invasive ductal s/p lumpectomy and radiation Follow up with Plastic surgery as previously scheduled Follow up with Dr. Allen in 2 weeks Call with questions or concerns Subjective: Feeling much improved Objective sitting up in bed, pleasant, incisions clean dry and intact, JPS with serosanguineous fluid Plan: 04/27/17 09:53 Objective: Vital Signs Temp Pulse Resp BP Pulse Ox 36.9 C 76 15 131/73 H 92 04/27/17 08:00 04/27/17 08:00 04/27/17 08:00 04/27/17 08:00 04/27/17 08:00 04/26/17 04/27/17 04/28/17 05:59 05:59 05:59 Intake Total 2045 780 350 Output Total 1375 160 Balance 670 620 350 ICD10 Worksheet Patient Problems: Problems Problem Status Onset Chest pain Acute
[2017-04-27] MEDS ORDERED: CEPHALEXIN 500 MG CAP PO ONE (10:00)
--- NOTE | 2017-04-27 11:09 | ASDISCHSUM ---
Discharge Information Plan Status:Home with No Needs Medically Cleared to Leave: Discharge Date: D/C Disposition:Home, Routine, Self-Care ADT D/C Disposition: Projected Discharge Date:04/27/2017 11:00 AM Transportation at D/C:Family Discharge Delay Reason: Follow-Up Date:04/27/2017 11:00 AM Discharge Slot: Final Diagnosis: Placement Information Patient Contact Information Contact Name:LUISA Relationship: Address:[address] [place] [address] City:[place] Alternate Phone: State/Zip Code:[place] [address] Email: Financial Information Financial Class: Primary Plan Desc:MEDICARE INPATIENT Primary Plan Number:[id number] Secondary Plan Desc:BC OUT OF STATE PPO Secondary Plan Number:[id number] Assessment Information [facility] CM Progress Note CM Note CM Note Notes: Pt s/p bilateral breast mastectomies with reconstruction. Hx previous R breast lumpectomy in September 2015 with chemo and radiation. Lives with her . Pt currently has NORA drains. May d/c tomorrow if pain is managed. Anticipate d/c home with no CM needs but will continue to follow for any change in needs. Date Signed: 04/26/2017 04:22 PM Electronically Signed By:INDIA Cole Intervention Information Intervention Type:TREY-Signed Date of Service:04/26/2017 09:27 AM Patient Type:Observation Staff Member:Anjali Marx Hours: Discipline: Severity: Comment:
== END 2017-04-27 11:08 | disposition home or self-care (01) | DRG 581 ==
LOC: F3N 09:41 → F1N 17:41 → OBSVTOIN 04-26 15:45
PROVIDERS: ADMIT Surgery; ATTEND Surgery
PROC: 0HTV0ZZ Resection of Bilateral Breast, Open Approach (ICD-10-PCS; principal; 2017-04-25 12:00)
PROC: 07B40ZX Excision of Left Upper Extremity Lymphatic, Open Approach, Diagnostic (ICD-10-PCS; principal; 2017-04-25 12:00)
PROC: 0HHV0NZ Insertion of Tissue Expander into Bilateral Breast, Open Approach (ICD-10-PCS; principal; 2017-04-25 12:00)
DX: C50.311 Malignant neoplasm of lower-inner quadrant of right female breast (principal); I10 Essential (primary) hypertension; I25.10 Atherosclerotic heart disease of native coronary artery without angina pectoris; E78.5 Hyperlipidemia, unspecified; Z95.5 Presence of coronary angioplasty implant and graft; Z95.1 Presence of aortocoronary bypass graft
CPT/HCPCS: A9520; J0690; J1100; J1170; J2405; J2704; J3010; Q4116; Q9968

== ENCOUNTER → 2017-05-08 | Outpatient (CLI) | payer OTHER, BC | LOC: GIMAGING 15:14 | PROVIDERS: ATTEND Family Medicine | DX: R05 Cough (principal) | CPT/HCPCS: 71020-PO ==

== ENCOUNTER → 2018-05-22 | Outpatient (CLI) | payer OTHER, BC | LOC: BHFA 10:45 | PROVIDERS: ATTEND Physician Assistant | DX: I25.10 Atherosclerotic heart disease of native coronary artery without angina pectoris (principal); I10 Essential (primary) hypertension; R78.5 Finding of other psychotropic drug in blood; Z95.1 Presence of aortocoronary bypass graft ==

== ENCOUNTER → 2018-07-12 | Outpatient (CLI) | payer OTHER, BC | LOC: FIMAGING 10:57 | PROVIDERS: ATTEND Family Medicine | DX: Z13.820 Encounter for screening for osteoporosis (principal); M85.89 Other specified disorders of bone density and structure, multiple sites ==

== ENCOUNTER → 2018-08-07 | Outpatient (CLI) | payer OTHER, BC | LOC: CIMAGING 13:34 | PROVIDERS: ATTEND Nurse Practitioner | DX: N63.10 Unspecified lump in the right breast, unspecified quadrant (principal); C50.311 Malignant neoplasm of lower-inner quadrant of right female breast; Z17.0 Estrogen receptor positive status [ER+]; R92.8 Other abnormal and inconclusive findings on diagnostic imaging of breast | CPT/HCPCS: 76641-PO ==

== ENCOUNTER 2018-08-10 08:50 | Day surgery (SDC) | payer OTHER, BC ==
[2018-08-10] MEDS ORDERED: ceFAZolin 2 GM/DEXTROSE 100 ML IV ONE (09:00)
[2018-08-10] MEDS ORDERED: LR 1,000 ML IV ONE (09:01)
[2018-08-10] MEDS ORDERED: BUPIVACAINE 0.5% 30 ML SDV ONE (09:39)
--- NOTE | 2018-08-10 09:45 | PDHPUP ---
History & Physical Update H&P update statement: This history and physical update is based on an assessment of the patient which was completed after admission or registration (within 24 hours), but prior to the surgery/procedure. H&P update: H&P reviewed & patient examined, no change in patient's condition since H&P completed
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
[2018-08-10] MEDS ORDERED: fentaNYL 100 MCG/2 ML INJ ONE (10:08)
[2018-08-10] MEDS ORDERED: LIDOCAINE 1% 300 MG/30 ML SDV ONE (10:09)
[2018-08-10] MEDS ORDERED: PROPOFOL/EMULSION 500 MG/50 ML BOTTLE IV ONE (10:09)
[2018-08-10] MEDS ORDERED: LIDOCAINE 2% 5 ML SDV ONE (10:11)
--- NOTE | 2018-08-10 10:46 | POSTOPPROG ---
Post Op Note Date of Operation: 08/10/18 Surgeon: Emilia Finn Anesthesiologist: mary Anesthesia: IV Sedation Pre-op Diagnosis: r breast mass Post-op Diagnosis: same Indication: 67 yo with r breast mass Procedure: excisional biopsy r breast mass Findings: fluid/solid nodule Inf/Abcess present in the surg proc area at time of surgery?: No Specimen(s): culture and nodule
[2018-08-10] MEDS ORDERED: ONDANSETRON 4 MG/2 ML VIAL IVP PRN (11:11)
[2018-08-10] MEDS ORDERED: NALOXONE HCL 0.4 MG/ML INJ IVP PRN (11:11)
[2018-08-10] MEDS ORDERED: fentaNYL 100 MCG/2 ML INJ IVP PRN (11:11)
[2018-08-10] MEDS ORDERED: HYDROmorphONE/DILAUDID 2 MG/ML INJ IVP PRN (11:11)
--- NOTE | 2018-08-10 11:13 | POSTANESTH ---
Post Anesthetic Evaluation Cardiovascular Status: Normal, Stable Respiratory Status: Normal, Stable Level of Consciousness/Mental Status: Can Participate in Eval Pain Control: Adequate, Prn Tx Ordered Nausea/Vomiting Control: Adequate, Prn Tx Ordered Complications Possibly Related to Anesthesia: None Noted
[2018-08-10 11:36] VITALS: BP 127/65
--- NOTE | 2018-08-10 12:37 | GOP ---
DATE OF OPERATION: 08/10/2018 SURGEON: Emilia Finn MD ANESTHESIA: Dr. Leyla Glez/monitored anesthesia care with sedation. PREOPERATIVE DIAGNOSIS: Right breast mass. POSTOPERATIVE DIAGNOSIS: Right breast mass. PROCEDURE PERFORMED: Excisional biopsy, right breast mass. FINDINGS: Fluid and solid components. SPECIMENS: Right breast mass and fluid for culture. INDICATIONS: The patient is a 67-year-old woman with recurrent breast cancer. She has noticed an enlarging nodule on her right breast. Ultrasound was performed which was read as BI-RADS 4. She presents for excisional biopsy. DESCRIPTION OF PROCEDURE: Patient was brought into the operating room, placed supine on the table. Monitored anesthesia care with IV sedation was performed. The right breast was prepped and draped in the usual sterile fashion. Infiltrated the area with 0.5% Marcaine mixed with 1% lidocaine. I made an incision over the nodule. I created superior and inferior skin flaps. There was some milky fluid that was expressed. I took a culture of this. I then excised the nodule in its entirety and passed this off the field. Hemostasis was achieved with electrocautery. The wound closed with 3-0 Vicryl followed by 4-0 Monocryl. Dermabond applied. She was awakened in the operating room, extubated, and transferred to PACU in stable condition. /[id number]/MODL MTDD
== END 2018-08-10 12:00 | disposition home or self-care (01) ==
LOC: FSGY 08:50
PROVIDERS: ATTEND Surgery
PROC: 0HBT0ZX Excision of Right Breast, Open Approach, Diagnostic (ICD-10-PCS; principal; 2018-08-10 10:15)
DX: N64.1 Fat necrosis of breast (principal); I10 Essential (primary) hypertension; I25.10 Atherosclerotic heart disease of native coronary artery without angina pectoris; Z95.5 Presence of coronary angioplasty implant and graft; J45.998 Other asthma; K21.9 Gastro-esophageal reflux disease without esophagitis; Z85.3 Personal history of malignant neoplasm of breast; Z90.13 Acquired absence of bilateral breasts and nipples
CPT/HCPCS: J0690; J2704; J3010